=== PATIENT | male | born 1945 | race Caucasian/White ===

== ENCOUNTER 2016-07-10 00:41 | Emergency (ER) | payer MEDICARE ==
[2016-07-10 01:41] LABS: ABSOLUTE NEUTROPHIL COUNT 8.6 K/mm3 (1.8-7.7); BASO # 0.1 K/mm3 (0.0-0.2); BASO % 0.4 % (0.2-1.0); EOS # 0.2 (0.0-0.5); EOS % 1.8 % (0.9-2.9); HEMATOCRIT 36.3 % (32.0-52.0); HEMOGLOBIN 12.4 gm/l (14.0-18.0); IMM NEUT # 0.1 K/mm3 (0-0.2); LYMPH # 2.6 (1.0-4.8); LYMPH % 19.5 % (15-45); MEAN CELL VOLUME 91.4 fl (80.0-94.0); MEAN CORPUSCULAR HEMOGLOBIN 31.2 pg (27.0-31.0); MEAN CORPUSCULAR HGB CONC 34.2 g/dl (33.0-37.0); MEAN PLATELET VOLUME 8.7 fl (7.4-10.4); MONO # 1.8 (0.0-0.8); MONO % 13.5 % (4-12); NEUT % 63.8 % (43-75); PLATELET COUNT 306 K/mm3 (130-400); RED CELL DISTRIBUTION WIDTH 12.6 % (11.5-14.5)
[2016-07-10 01:50] LABS: ALBUMIN 3.4 gm/dL (3.5-5.7); CALCIUM 8.4 mg/dL (8.6-10.3)
--- NOTE | 2016-07-10 07:06 | RAD ---
History: Continued dyspnea. History of pneumonia. Comparison: 09/21/2010. Technique: 2 views Findings: Multilevel thoracic degenerative changes are identified. The heart size is stable. Left perihilar atelectasis or scarring is seen. No gross consolidation, effusion or pneumothorax is seen. The hilar and mediastinal structures are intact. Impression: 1. Left perihilar atelectasis or scarring. 2. No active intrathoracic process.
== END 2016-07-10 02:51 | disposition home or self-care (01) ==
LOC: ED 00:41
DX: J40 Bronchitis, not specified as acute or chronic (principal); R07.9 Chest pain, unspecified; Z87.891 Personal history of nicotine dependence